=== PATIENT | male | born 1970 | race Caucasian/White ===

== ENCOUNTER 2024-01-11 13:05 | Outpatient (CLI) | payer OTHER, SELFPAY ==
--- NOTE | ~2024-01-11 | XR_ITS ---
EXAMINATION: XR shoulder RT min 2V DATE: 01/11/2024 13:27 INDICATION: Fall onto unspecified water causing other injuries. TECHNIQUE: 4 views of right shoulder were obtained. COMPARISON: Right shoulder radiographs 04/09/2017 FINDINGS: Bone alignment is normal. No fracture. Joint spaces are normal. IMPRESSION: 1. Normal right shoulder. Reviewed, dictated and finalized at location A. IMPRESSION: 1. Normal right shoulder.
--- NOTE | ~2024-01-11 | XR_ITS ---
EXAMINATION: XR_[id number]_CR DATE: 01/11/2024 13:27 INDICATION: Fall into other unspecified water causing other injury. TECHNIQUE: 3 views of cervical spine were obtained. COMPARISON: None. FINDINGS: Bone alignment is normal. Vertebral body heights are normal. There is mildly decreased disc height at C5-C6 and C6-C7. At C5-C6, there is severe right uncovertebral joint osteoarthritis. There is multilevel facet joint osteoarthritis, severe at C7-T1. No central canal stenosis or prevertebral soft tissue swelling. IMPRESSION: 1. Mild cervical spondylosis. Reviewed, dictated and finalized at location A.
== END 2024-01-11 13:06 ==
PROVIDERS: PCP Emergency Medicine; Visit Provider Nurse Practitioner Family
DX: M43.02 Spondylolysis, cervical region (principal); M25.511 Pain in right shoulder; W16.42XA Fall into unspecified water causing other injury, initial encounter
CPT/HCPCS: 72040; 73030

== ENCOUNTER 2025-02-28 10:14 | Outpatient (CLI) | payer OTHER, SELFPAY ==
--- NOTE | 2025-02-28 11:00 | NEURO_ITS ---
Impression: # Non-diabetic complains of numbness of Right hand and decreased strength. ? # Right Ulnar Neuropathy across the elbow. ? # Mild Carpal Tunnel Syndrome bilaterally, sensory more than motor. ? # Abnormal Needle/ EMG exam proximally as well. ? # Needs MRI of cervical spine. ? Nerve Conduction Studies ?Stim Site NR Peak (ms) P-T Amp (?V) Site1 Site2 Delta-P (ms) Dist (cm) Santos (m/s) Left Median Anti Sensory (2-3nd Digit) Wrist ? 3.6 29.5 Wrist 2-3nd Digit 3.6 14.0 39 Wrist ? 3.8 21.9 Wrist 2-3nd Digit 3.6 14.0 39 Right Median Anti Sensory (2-3nd Digit) Wrist ? 3.7 24.9 Wrist 2-3nd Digit 3.7 14.0 38 Wrist ? 3.8 21.5 Wrist 2-3nd Digit 3.7 14.0 38 Left Radial Anti Sensory (Base 1st Digit) Wrist ? 2.1 10.5 Wrist Base 1st Digit 2.1 0.0 Right Radial Anti Sensory (Base 1st Digit) Wrist ? 2.1 13.7 Wrist Base 1st Digit 2.1 0.0 Left Ulnar Anti Sensory (5th Digit) Wrist ? 2.7 34.7 Wrist 5th Digit 2.7 14.0 52 Right Ulnar Anti Sensory (5th Digit) Wrist ? 2.5 22.9 Wrist 5th Digit 2.5 14.0 56 ?Stim Site NR Onset (ms) O-P Amp (mV) Site1 Site2 Delta-0 (ms) Dist (cm) Santos (m/s) Left Median Motor (Abd Poll Brev) Wrist ? 4.0 4.8 Elbow Wrist 5.4 30.0 56 Elbow ? 9.4 4.5 Right Median Motor (Abd Poll Brev) Wrist ? 4.2 4.3 Elbow Wrist 5.5 31.0 56 Elbow ? 9.7 3.9 Left Ulnar Motor (Abd Dig Minimi) Wrist ? 2.6 6.0 A Elbow Wrist 5.6 31.0 55 A Elbow ? 8.2 5.2 B Elbow Wrist 4.1 23.0 56 B Elbow ? 6.7 4.2 Right Ulnar Motor (Abd Dig Minimi) Wrist ? 2.7 3.8 A Elbow Wrist 6.2 30.0 48 A Elbow ? 8.9 3.1 B Elbow Wrist 3.9 21.0 54 B Elbow ? 6.6 2.8 Electromyography ?Side Muscle Nerve Root Ins Act Fibs Amp Dur Recrt Comment Right 1stDorInt Ulnar C8-T1 Nml Nml Nml Nml Nml Right Ext Indicis Radial (Post Int) C7-8 Nml Nml Nml Nml Nml Right Ext Digitorum Radial (Post Int) C7-8 Nml Nml Nml Nml Nml Right BrachioRad Radial C5-6 Nml Nml Incr >12ms +1 Right PronatorTeres Median C6-7 Nml Nml Nml Nml Nml Right Abd Poll Brev Median C8-T1 Nml Nml Nml Nml Nml Right ABD Dig Min Ulnar C8-T1 Nml Nml Nml Nml Nml Right FlexPolLong Median (Ant Int) C7-8 Nml Nml Nml Nml Nml Right Abd Poll Long Radial (Post Int) C7-8 Nml Nml Nml Nml Nml Left 1stDorInt Ulnar C8-T1 Nml Nml Nml Nml Nml Left Ext Indicis Radial (Post Int) C7-8 Nml Nml Nml Nml Nml Left Ext Digitorum Radial (Post Int) C7-8 Nml Nml Nml Nml Nml Left BrachioRad Radial C5-6 Nml Nml Incr >12ms +1 Left PronatorTeres Median C6-7 Nml Nml Nml Nml Nml Left Abd Poll Brev Median C8-T1 Nml Nml Nml Nml Nml Left ABD Dig Min Ulnar C8-T1 Nml Nml Nml Nml Nml Left FlexPolLong Median (Ant Int) C7-8 Nml Nml Nml Nml Nml Left Abd Poll Long Radial (Post Int) C7-8 Nml Nml Nml Nml Nml Right Biceps Musculocut C5-6 Nml Nml Incr >12ms +1 Right Triceps Radial C6-7-8 Nml Nml Incr >12ms +1 Right Deltoid Axillary C5-6 Nml Nml Incr >12ms +1 Left Biceps Musculocut C5-6 Nml Nml Incr >12ms +1 Left Triceps Radial C6-7-8 Nml Nml Incr >12ms +1 Left Deltoid Axillary C5-6 Nml Nml Incr >12ms +1
== END 2025-02-28 10:15 | disposition home or self-care (01) ==
LOC: ANHNEURO 10:16
PROVIDERS: PCP Family Medicine; Visit Provider Family Medicine
DX: G56.22 Lesion of ulnar nerve, left upper limb (principal); G56.03 Carpal tunnel syndrome, bilateral upper limbs
CPT/HCPCS: 95886; 95911

== ENCOUNTER 2025-03-16 15:51 | Outpatient (CLI) | payer OTHER, SELFPAY ==
--- NOTE | ~2025-03-16 | MR_ITS ---
MRI of the cervical spine Clinical History: Cervical disc disorder Technique: Axial T2-weighted and gradient images, and sagittal T1-weighted, T2-weighted, and STIR alexis ges were acquired. Findings: There is no fracture or subluxation of the cervical spine. Vertebral bodies maintain normal height and alignment. No bone marrow signal abnormality seen. At C2-C3, there is no significant disc bulge or herniation. No spinal canal stenosis, cord compressio n, or neural foraminal narrowing. At C3-C4, there is minimal disc osteophyte complex and minimal facet joint degenerative change. No sp inal canal stenosis, cord compression, or neural foraminal narrowing. At C4-C5, there is minimal disc osteophyte complex. There is mild bilateral facet arthropathy, left w orse than right. There is mild bilateral neural foraminal narrowing, left worse than right. No canal stenosis or cord compression. At C5-C6, there is disc osteophyte complex, most pronounced at the right foraminal region with severe right neural foraminal narrowing. Left neural foramen preserved. No canal stenosis or cord compressi on. At C6-C7, there is no disc bulge or herniation. No spinal canal stenosis, cord compression, or neural foraminal narrowing. No abnormal signal seen in the spinal cord. Paravertebral soft tissues are unremarkable. Impression: Moderate degenerative spondylosis at C4-C5 and C5-C6 in particular, as detailed above. Reviewed, dictated and finalized at [facility]. Impression: Moderate degenerative spondylosis at C4-C5 and C5-C6 in particular, as detailed above.
== END 2025-03-16 15:52 | disposition home or self-care (01) ==
LOC: MICIMG 15:52
PROVIDERS: PCP Family Medicine; Visit Provider Family Medicine
DX: M50.30 Other cervical disc degeneration, unspecified cervical region (principal)
CPT/HCPCS: 72141